=== PATIENT | female | born 1980 | race Caucasian/White ===

== ENCOUNTER 2017-04-17 17:08 | Emergency (ER) | payer OTHER ==
[2017-04-17] MEDS ORDERED: Naproxen 550 mg Tab PO STA (17:50)
[2017-04-17 18:55] VITALS: TEMP 98.2
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
[2017-04-17 20:52] VITALS: RESP 18
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
[2017-04-18 01:24] VITALS: BP 139/92; PULSE 75; O2SAT 97
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
--- NOTE | 2017-04-18 07:53 | RAD ---
PROCEDURE: Cervical Spine Radiographs. HISTORY: Pain. COMPARISON: None. FINDINGS: BONES: Alignment maintained. No fracture. Dens Intact. DISC SPACES: Normal. SOFT TISSUES: Normal. No prevertebral soft tissue swelling. OTHER FINDINGS: The head is tilted to the right. This could be secondary to muscular spasm or patient positioning IMPRESSION: No acute findings
== END 2017-04-18 02:54 | disposition home or self-care (01) ==
LOC: ED 17:08
DX: S42.102A Fracture of unspecified part of scapula, left shoulder, initial encounter for closed fracture (principal); S22.048A Other fracture of fourth thoracic vertebra, initial encounter for closed fracture; S22.059A Unspecified fracture of T5-T6 vertebra, initial encounter for closed fracture; S22.069A Unspecified fracture of T7-T8 vertebra, initial encounter for closed fracture; V03.90XA Pedestrian on foot injured in collision with car, pick-up truck or van, unspecified whether traffic or nontraffic accident, initial encounter; Y92.410 Unspecified street and highway as the place of occurrence of the external cause; M54.2 Cervicalgia; M54.9 Dorsalgia, unspecified